=== PATIENT | female | born 1990 | race Caucasian/White ===

== ENCOUNTER 2022-04-07 12:38 | Emergency (ER) | payer OTHER ==
[~2022-04-07] VITALS: Ht 162.6 cm; Wt 60.3 kg
[2022-04-07 12:55] VITALS: BP 120/73
--- NOTE | 2022-04-07 13:01 | NUR ---
PT AMB TO BED 4.
[2022-04-07] MEDS ORDERED: MEDR10TA PO (13:27)
--- NOTE | 2022-04-07 13:34 | NUR ---
no nursing interventions at this time
[2022-04-07 13:38] VITALS: BP 120/73
--- NOTE | 2022-04-07 13:39 | NUR ---
Patient discharged with v/s stable. Written and verbal after care instructions given and explained. Patient alert, oriented and verbalized understanding of instructions. Ambulatory with steady gait. All questions addressed prior to discharge. ID band removed. Patient advised to follow up with PMD. Rx of provera (sent) given. Patient educated on indication of medication including possible reaction and side effects. Opportunity to ask questions provided and answered.
== END 2022-04-07 13:38 | disposition home or self-care (01) ==
LOC: MED 12:38
DX: N93.8 Other specified abnormal uterine and vaginal bleeding (principal)
CPT/HCPCS: 81002; 81025; 99282; 99283

== ENCOUNTER 2023-08-25 18:34 | Emergency (ER) | payer OTHER ==
[~2023-08-25] VITALS: Ht 162.6 cm; Wt 54.0 kg
[~2023-08-25 18:34] MED LIST: MEDR10TA PO
[2023-08-25 19:43] VITALS: BP 151/71; PULSE 72; RESP 20; TEMP 97.6; O2SAT 100
[2023-08-25] MEDS ORDERED: KETOROLAC 30 MG/ML VIAL IM ONE (20:20)
[2023-08-25 21:05] VITALS: O2SAT 100
[2023-08-25] MEDS ORDERED: CYCL-711 PO (21:42)
[2023-08-25] MEDS ORDERED: NAPR-54 PO (21:42)
[2023-08-25] MEDS ORDERED: LID5T TP (21:42)
[2023-08-25] MEDS ORDERED: HYDROcodone/APAP 5/325 MG 1 TAB TAB PO ONE (21:45)
== END 2023-08-25 21:50 | disposition home or self-care (01) ==
LOC: MED 18:34
DX: M54.50 Low back pain, unspecified (principal); Z79.899 Other long term (current) drug therapy; Z79.1 Long term (current) use of non-steroidal anti-inflammatories (NSAID)
CPT/HCPCS: 72110; 81025; 96372; 99283; J1885